=== PATIENT | male | born 1995 | race African-American/Black ===

== ENCOUNTER 2020-09-01 16:16 | Emergency (ER) | payer OTHER, SELFPAY ==
[2020-09-01 16:31] VITALS: BP 139/68; PULSE 83; RESP 16; TEMP 35.1; O2SAT 95; BMI 27.8
== END 2020-09-01 18:45 | disposition left against medical advice (07) ==
PROVIDERS: Emergency Provider Emergency Medicine
DX: R11.2 Nausea with vomiting, unspecified (principal); R19.7 Diarrhea, unspecified; Z86.16 Personal history of COVID-19
CPT/HCPCS: 99281; 99282

== ENCOUNTER 2022-05-03 08:20 | Emergency (ER) | payer OTHER, SELFPAY ==
--- NOTE | ~2022-05-03 | XR_ITS ---
EXAMINATION: XR CHEST CLINICAL INFORMATION: Cough. COMPARISON: None TECHNIQUE: 2 views of the chest were obtained. FINDINGS: No significant abnormality is noted involving the heart, lungs, mediastinum, bony thorax or soft tissues. XR/XR chest 2V IMPRESSION: Unremarkable chest examination.
[2022-05-03 08:23] VITALS: BP 138/70; PULSE 67; RESP 20; TEMP 36.6; O2SAT 98; BMI 29.5
[2022-05-03 08:30] VITALS: BP 135/89; PULSE 61; RESP 15; TEMP 36.7; O2SAT 98
--- NOTE | 2022-05-03 08:50 | ED_ITS ---
HPI - General Adult General Chief complaint: General Medical Stated complaint: Cough Time Seen by Provider: 05/03/22 08:30 Source: patient Mode of arrival: ambulatory Limitations: no limitations History of Present Illness HPI narrative: 26 year old male with no PMHx presents to the ED with cough, sneezing and headaches x 4-5 days ago. Endorses chest congestion, SOB at night when coughing, and brown/yellow mucus production x 2-3 days. Daughter was recently sick with the flu, and his currently has pneumonia. Endorses recent travel to [place]. Denies fever, chills, excess sweating, chest pain, leg swelling, nausea, vomiting, abdominal pain, or diarrhea. Onset (ago): day(s) Related Data Previous Rx's Medication Instructions Recorded fluticasone propionate 50 2 spray intranasal DAILY #16 grams 05/03/22 mcg/actuation nasal spray,suspension (Flonase Allergy Relief) prednisone 20 mg tablet 40 mg PO DAILY 5 days #10 tabs 05/03/22 Allergies Allergy/AdvReac Type Severity Reaction Status Date / Time No Known Allergies Allergy Unverified 05/03/22 08:22 [No Known Allergies*] Review of Systems Review of Systems: Constitutional: No Fever, No Chills ENT/Mouth: No Ear Pain, + Nasal Congestion, No Sinus Pain, No Hoarseness, + sore throat, No Rhinorrhea, No Swallowing Difficulty Cardiovascular: + Chest Pain when coughing, + SOB Respiratory: + Cough, + Sputum, No Wheezing Gastrointestinal: No Nausea, No Vomiting, No Diarrhea, No Constipation, No Abdominal pain Genitourinary: No Dysuria, No Urinary Frequency, No Hematuria, No Flank Pain Musculoskeletal: No joint pain, No Myalgias, No Joint Swelling Skin: No Skin Lesions, No rash Neuro: No Weakness, No Numbness, No Paresthesias Yes all other systems are reviewed and are negative Constitutional: Constitutional: Reports as per [facility] Past Medical History Attestation statement: The following information was validated with the patient. Social History Social History Advance Directives: No Advance Directives Information Provided: No Physical Exam ED Vital Signs: Vital Signs - 24 hr 05/03/22 08:23 05/03/22 08:30 Temperature 97.8 F 98.0 F Pulse Rate 67 61 Respiratory Rate 20 15 Blood Pressure 138/70 135/89 Pulse Oximetry 98 98 Oxygen Delivery Method Room Air Room Air BMI result Body Mass Index 29.5 Const General: cooperative, healthy appearing, no acute distress, well developed, alert and awake Orientation/consciousness: patient oriented x3 Limitations: no limitations HENMT Head: Yes normal to inspection and Yes atraumatic Ears: hearing grossly normal bilaterally General nose exam: Normal external nose present Face and sinus: Yes normal facial exam Throat: Yes posterior oropharynx normal, Yes tonsils normal and Yes uvula midline Eyes General: appearance normal, both eyes and all related structures EOM: EOMs intact bilaterally Neck Neck: Yes normal visual inspection and Yes no meningeal signs Resp Effort & Inspection: normal respiratory effort and no respiratory distress Auscultation: clear to auscultation bilaterally, no crackles, no rales, no rhonchi and no wheezes Cardio Rate: regular rate Heart sounds: S1 normal heart sound present and S2 normal heart sound present GI Inspection: Yes normal to inspection Palpation (GI): Soft to palpation, nontender, no guarding and not rigid General: Yes no CVA tenderness Back/Spine/Pelvis Back: no CVA tenderness Skin Rashes: no rashes Wounds: no wounds Neuro General: patient oriented x3, tone normal and no meningeal signs Gait exam (Neuro): Normal gait present Extrem General: Yes normal to inspection, Yes no pedal edema and Yes no calf tenderness Course Course Course Narrative: XR chest 2V IMPRESSION: Unremarkable chest examination. - COVID-19/influenza/ RSV negative Results discussed with patient including worrisome signs and symptoms and strict return precautions, and when to return to the emergency department. They verbalized understanding and feel safe for discharge at this time. Medical Decision Making Medical Decision Making MDM Narrative: 26 year old male with no PMHx presents to the ED with cough, sneezing and headaches x 4-5 days ago w/SOB at night when coughing, and brown/yellow mucus production x 2-3 days. on exam vital signs stable, NAD, nontoxic appearing, lungs CTA, exam otherwise nonfocal. Concern for viral illness vs pneumonia vs bronchitis. Lower suspicion for ACS/ PE or CHF Plan: COVID-19/influenza/ RSV testing, CXR Please refer to course for remaining clinical decision making, interpretation of labs/imaging results, and discussions with consultants and/or family members. Differential Diagnosis Differential Diagnoses: The differential diagnosis associated with the presentation includes as above Lab Data MDM Lab Attestation statement: I reviewed the patient's lab results. Labs: Lab Results 05/03/22 Range/Units 09:09 Influenza Type A (PCR) NEGATIVE (Negative) Influenza Type B (PCR) NEGATIVE (Negative) RSV RNA Qual (PCR) NEGATIVE (Negative) SARS-CoV-2 RNA (RT-PCR) NEGATIVE (Negative) Radiology Impression Discussion of test interpretation with radiology: I have reviewed the radiologist's reading. Prescription Management I considered prescription management with: Antiviral and Antibiotic Discharge Plan Discharge Clinical Impression: Bronchitis Patient Disposition: Home, Self-Care Instructions: Acute Bronchitis (ED) Additional Instructions: your x-ray is unremarkable. you tested negative for COVID-19, flu, and RSV prednisone as a steroid please take as prescribed. In addition Flonase nasal decongestant. Please have close follow-up with her doctor. If symptoms persist or worsen return to the emergency department Prescriptions: New prednisone 20 mg tablet 40 mg PO DAILY 5 Days Qty: 10 0RF fluticasone propionate [Flonase Allergy Relief] 50 mcg/actuation spray,suspension 2 spray intranasal DAILY Qty: 16 0RF Rx Instructions: administer into each nostril Referrals: Physician,Unknown J [Primary Care Provider] - 1 week Stand Alone Forms: Work/School Release
[2022-05-03 09:55] LABS: Influenza A PCR NEGATIVE (Negative); Influenza B PCR NEGATIVE (Negative); Resp Syncy Virus RNA Qual PCR NEGATIVE (Negative); SARS COV2 PCR INHOUSE NEGATIVE (Negative)
== END 2022-05-03 11:37 | disposition home or self-care (01) ==
PROVIDERS: Physician Assistant; Emergency Provider Emergency Medicine
DX: J40 Bronchitis, not specified as acute or chronic (principal); Z20.822 Contact with and (suspected) exposure to COVID-19; Z20.828 Contact with and (suspected) exposure to other viral communicable diseases
CPT/HCPCS: 0241U; 71046; 99283

== ENCOUNTER 2022-10-03 20:21 | Emergency (ER) | payer MEDICAID, SELFPAY ==
--- NOTE | ~2022-10-03 | XR_ITS ---
Indication: Fall, pain EXAMINATION: Right ankle, right foot. 2 views of the right ankle demonstrate a small bony density emanating off the dorsal aspect of the distal talus. Avulsion here would need to be considered. Point palpation recommended. Otherwise no evidence for fracture or dislocation in the ankle. 3 views of the right foot does not demonstrate evidence for fracture or dislocation in the right foot proper XR/XR ankle RT min 3V IMPRESSION: Small bony density emanating off the dorsal aspect of the distal talus may represent a small acute avulsion injury. Point palpation recommended here. Otherwise no evidence for acute fracture or dislocation of the right foot, right ankle
--- NOTE | ~2022-10-03 | XR_ITS ---
Indication: Fall, pain EXAMINATION: Right ankle, right foot. 2 views of the right ankle demonstrate a small bony density emanating off the dorsal aspect of the distal talus. Avulsion here would need to be considered. Point palpation recommended. Otherwise no evidence for fracture or dislocation in the ankle. 3 views of the right foot does not demonstrate evidence for fracture or dislocation in the right foot proper XR/XR foot RT min 3V IMPRESSION: Small bony density emanating off the dorsal aspect of the distal talus may represent a small acute avulsion injury. Point palpation recommended here. Otherwise no evidence for acute fracture or dislocation of the right foot, right ankle
[2022-10-03 20:40] VITALS: BP 138/81; PULSE 60; RESP 16; TEMP 36.6; O2SAT 99; BMI 29.4
--- NOTE | 2022-10-03 20:40 | ED.LOWEXIN ---
HPI - Extremity Injury (Lower) General Chief Complaint: Fall Stated Complaint: Fall down stairs/Right leg pain Time Seen by Provider: 10/04/22 00:52 Related Data Previous Rx's Medication Instructions Recorded fluticasone propionate 50 2 spray intranasal DAILY #16 grams 05/03/22 mcg/actuation nasal spray,suspension (Flonase Allergy Relief) ibuprofen 400 mg tablet 400 mg PO Q6H PRN pain #20 tabs 10/04/22 Allergies Allergy/AdvReac Type Severity Reaction Status Date / Time No Known Allergies Allergy Unverified 10/04/22 13:54 [No Known Allergies*] [facility] Social History Social History Alcohol intake: never Current occupational status: employed 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 Patient is a 26-year-old male presents emergency department for evaluation of traumatic right ankle/foot pain. Was walking down the stairs, tripped falling down approximately 4 stairs. Has pain localized to the right lateral ankle/proximal foot. Reports severe increase in pain with weight-bearing. Plan: XR right ankle/foot Discharge Plan Discharge Clinical Impression: Fracture of foot Patient Disposition: Home, Self-Care Instructions: Crutch Instructions (ED), Foot Fracture in Adults (ED) Prescriptions: New ibuprofen 400 mg tablet 400 mg PO Q6H PRN (Reason: pain) Qty: 20 0RF No Action fluticasone propionate [Flonase Allergy Relief] 50 mcg/actuation spray,suspension 2 spray intranasal DAILY Qty: 16 0RF Rx Instructions: administer into each nostril Referrals: Feliz Esquivel MD [Physician] - Stand Alone Forms: Work/School Release Interventions: ED Discharge Assessment Last Done: 10/04/22 01:34 Discharge Date/Time: 10/04/22 01:52
--- NOTE | 2022-10-04 01:01 | ED.FALL ---
HPI - Fall General Chief Complaint: Fall Stated Complaint: Fall down stairs/Right leg pain Time Seen by Provider: 10/04/22 00:52 History of Present Illness HPI Narrative: Patient is a 26-year-old male status post twisting injury to the right ankle. Complaining of pain localized over the foot. There is no any head injury. No nausea no vomiting. Patient from home. Related Data Previous Rx's Medication Instructions Recorded fluticasone propionate 50 2 spray intranasal DAILY #16 grams 05/03/22 mcg/actuation nasal spray,suspension (Flonase Allergy Relief) prednisone 20 mg tablet 40 mg PO DAILY 5 days #10 tabs 05/03/22 ibuprofen 400 mg tablet 400 mg PO Q6H PRN pain #20 tabs 10/04/22 Allergies Allergy/AdvReac Type Severity Reaction Status Date / Time No Known Allergies Allergy Unverified 05/03/22 08:22 [No Known Allergies*] Review of Systems Review of Systems: Positive pain to the right foot PMFSH Social History Social History Alcohol intake: never Physical Exam Vital Signs: Vital Signs: Last Vital Signs Temp 98 F 10/03/22 20:40 Pulse 60 10/03/22 20:40 Resp 16 10/03/22 20:40 BP 138/81 10/03/22 20:40 Pulse Ox 99 10/03/22 20:40 O2 Del Method Room Air 10/03/22 20:40 BMI result Body Mass Index 29.4 Appearance: Alert. Oriented X3. No acute distress. Eyes: Pupils equal, round and reactive to light. ENT: Pharynx normal. Neck: Normal inspection. Neck supple. No lymph nodes noted. No crepitus CVS: Normal heart rate and rhythm. Pulses normal. Normal S1 and S2 Respiratory: No respiratory distress. Breath sounds normal. No Wheezing. No rales Abdomen: Soft and nontender. No rigidity. No distention. good BS x4 Skin: Skin warm and dry. Normal skin color. Normal skin turgor. Extremities: positive swelling over the lateral aspect of the right proximal foot. Distal pulses at both dorsalis pedis and posterior tibialis intact. Positive pain on palpation at the base of the 5th metatarsal. Skin intact. Neuro: Oriented X 3. No motor deficit. No sensory deficit. Moving all extermities. No slurred speech Procedures Orthopedic Splinting/Casting right leg: Side: right Lower Extremity Injury Location: lower leg Lower Extremity Immobilizer: posterior splint Other Orthopedic Equipment: crutches Medical Decision Making Medical Decision Making MDM Narrative: x-ray of the foot done. It showed a question talus avulsion fracture. Will place patient in a posterior splint. Also start patient on Motrin for pain. Crutches for comfort. Close follow-up with orthopedics on an outpatient basis. In stable condition Independent Interpretation I performed an independent interpretation of an: Plain X-Ray Interpretation: No gross fracture identified Radiology Impression Discussion of test interpretation with radiology: I have reviewed the radiologist's reading. Radiologist Impression: question of [place] fracture noted Discharge Plan Discharge Clinical Impression: Fracture of foot Patient Disposition: Home, Self-Care Instructions: Crutch Instructions (ED), Foot Fracture in Adults (ED) Prescriptions: New ibuprofen 400 mg tablet 400 mg PO Q6H PRN (Reason: pain) Qty: 20 0RF No Action prednisone 20 mg tablet 40 mg PO DAILY 5 Days Qty: 10 0RF fluticasone propionate [Flonase Allergy Relief] 50 mcg/actuation spray,suspension 2 spray intranasal DAILY Qty: 16 0RF Rx Instructions: administer into each nostril Referrals: Feliz Esquivel MD [Physician] -
[2022-10-04 01:10] VITALS: BP 145/88; PULSE 97; RESP 18; TEMP 36.9; O2SAT 99
[2022-10-04 01:13] VITALS: BP 145/88; PULSE 97; RESP 18; TEMP 37.1
--- NOTE | 2022-10-04 01:33 | PC.NURSE ---
patient in the process of being discharged patient received a splint patient have no complaints at this time patient will continue to be given all paperwork
--- NOTE | 2022-10-04 01:36 | MHC.EDTECH ---
This tech applied a posterior short leg splint to pts right leg. Placement checked by . RN aware, Awaiting Discharge
== END 2022-10-04 01:52 | disposition home or self-care (01) ==
PROVIDERS: Emergency Provider Emergency Medicine Emergency Medical Services
DX: S92.811A Other fracture of right foot, initial encounter for closed fracture (principal); W10.8XXA Fall (on) (from) other stairs and steps, initial encounter; Y93.89 Activity, other specified; Y92.018 Other place in single-family (private) house as the place of occurrence of the external cause; Y99.9 Unspecified external cause status
CPT/HCPCS: 29515; 73610; 73630; 99202; 99283; 99284

== ENCOUNTER 2022-11-04 09:48 | Outpatient (REF) | payer MEDICAID, SELFPAY ==
--- NOTE | ~2022-11-04 | XR_ITS ---
EXAMINATION: XR FOOT, RIGHT CLINICAL INFORMATION: Right foot involving fracture chip fracture right talus COMPARISON: 10/03/2022 right foot and ankle TECHNIQUE: AP, lateral, and oblique views of the right foot. FINDINGS: Redemonstration of small bony density along the dorsal anterior aspect of the talus, concerning for an avulsion fracture. Correlation with the clinical exam recommended for confirmation. The joint spaces are maintained. The bone mineralization is normal. XR/XR foot RT min 3V IMPRESSION: Redemonstration of small bony density along the dorsal anterior aspect of the talus, concerning for an avulsion fracture. Correlation with the clinical exam recommended for confirmation. Additional imaging with CT scan or MRI should be considered for better visualization as these modalities are much more sensitive for detection of fracture or other underlying pathology.
== END 2022-11-04 09:49 | disposition home or self-care (01) ==
LOC: HO.HOSX 09:48
PROVIDERS: Visit Provider Orthopaedic Surgery
DX: S92.151D Displaced avulsion fracture (chip fracture) of right talus, subsequent encounter for fracture with routine healing (principal); W10.9XXD Fall (on) (from) unspecified stairs and steps, subsequent encounter
CPT/HCPCS: 73630; 99212

== ENCOUNTER 2022-11-04 10:04 | Outpatient (AMB) | payer MEDICAID, SELFPAY ==
--- NOTE | 2022-11-04 10:22 | MHC.OFFVIS ---
Intake Intake Visit Reasons: OV- Right foot fx Intake Note: Rupert is a 26 year old male who presents today for a follow up of his right foot. While going down the stairs on 10/03/22 he slipped and sustained a right talus avulsion fx. Patient has been wearing boot, and reports that he is doing well he has continued pain and swelling. Allergies No Known Allergies [No Known Allergies*] Allergy (Unverified 10/04/22 13:54) HPI OV- Right foot fx HPI Details Rupert is a 26 year old man here for a follow-up of his right talus avulsion fracture, S/P fall, DOI: 10/03/22. He says he is doing well overall. He continues to have subjective pain and swelling in his foot but says this has improved since he was last seen. He has been wearing a walking boot as instructed and has been working on gentle ROM when out of the boot. He has not done any PT. 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 Assessment & Plan Assessment & Plan (1) Avulsion fracture of right talus: Code(s): S92.151A - Displaced avulsion fracture (chip fracture) of right talus, initial encounter for closed fracture Plan: This is a 26 year old man with a right tailus avulsion fracture, S/P fall, DOI: 10/03/22. His pain has improved and has been wearing a walking boot. I recommend PT, he discontinue his crutches, and WBAT in his walking boot for the next 2 weeks. After 2 weeks he will discontinue his walking boot. I ordered PT, he will follow up in 1 month. He was given a note to remain out of work until his next visit. Plan Scribed for Feliz Esquivel MD by Alex Silva, medical assistant cardiology, on 11/04/22 at 10:50 AM, EST. Orders: Orders XR foot RT min 3V 11/04/22 S92.151A - Displaced avulsion fracture (chip fracture) of right talus, initial encounter for closed fracture PT Evaluation and Treatment 11/04/22 S92.151A - Displaced avulsion fracture (chip fracture) of right talus, initial encounter for closed fracture Coding Level of Care Code Est Pt Level 3 (28594) Diagnoses Avulsion fracture of right talus S92.151A
== END 2022-11-04 11:05 | disposition home or self-care (01) ==
PROVIDERS: PCP Physician Assistant; Visit Provider Orthopaedic Surgery
DX: S92.151A Displaced avulsion fracture (chip fracture) of right talus, initial encounter for closed fracture (principal)
CPT/HCPCS: 99213

== ENCOUNTER 2022-12-09 10:43 | Outpatient (AMB) | payer MEDICAID, SELFPAY ==
--- NOTE | 2022-12-09 10:47 | MHC.OFFVIS ---
Intake Vital Signs 12/09/22 10:48 Height 5 ft 11 in Weight 211 lb BMI 29.4 Intake Visit Reasons: OV- Right foot fx Intake Note: Rupert is a 26 year old male who presents today for a follow up of his right foot. Patient reports sharri he is doing well, still having some pain daily. He is still wearing the boot. He started PT recently which is going. Allergies No Known Allergies [No Known Allergies*] Allergy (Unverified 10/04/22 13:54) HPI OV- Right foot fx HPI Details Rupert is a 26 year old man here for a follow-up of his right talus avulsion fracture, S/P fall, DOI: 10/03/22. He says he is doing well overall. He continues to have mild pain in his foot but this is tolerable. He has been wearing a walking boot as instructed and has been working on gentle ROM when out of the boot. He recently started with PT, which is going well.? ? 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 Review of Systems Const All systems reviewed & are unremarkable except as noted in HPI and below Physical Exam Vital Signs: BMI result Body Mass Index 29.4 Const General: no acute distress, alert and awake Orientation/consciousness: patient oriented x3 HEENT Head: Yes normocephalic and Yes atraumatic Eyes EOM: EOMs intact bilaterally Resp Effort & Inspection: normal respiratory effort and able to speak in complete sentences Cardio Jugular venous distension: no JVD Skin General skin exam: turgor normal Rashes: no rashes Neuro General: patient oriented x3 Extrem Other: Right Foot: No soft tissue swelling No appreciable tenderness over dorsum of foot walking with a boot Mild antalgia with gait Psych Appearance: grossly normal Affect: normal affect Attitude: cooperative Assessment & Plan Assessment & Plan (1) Avulsion fracture of right talus: Code(s): S92.151A - Displaced avulsion fracture (chip fracture) of right talus, initial encounter for closed fracture Plan: This is a 26 year old man with a right talus avulsion fracture, S/P fall, DOI: 10/03/22. His pain has improved and has been wearing a walking boot. I recommend he continue with PT and spend the next week weaning off his walking boot and transitioning to street shoes. He should be mindful to not push through pain. He will continue current work restrictions and follow up in 1 month, with the goal of returning to full duty. Plan Scribed for Feliz Esquivel MD by Alex Silva, medical office supervisor, on 12/09/22 at 10:55 AM, EST. Coding Level of Care Code Est Pt Level 3 (18577) Diagnoses Avulsion fracture of right talus S92.151A
[2022-12-09 10:48] VITALS: BMI 29.4
== END 2022-12-09 11:01 | disposition home or self-care (01) ==
PROVIDERS: PCP Physician Assistant; Visit Provider Orthopaedic Surgery
DX: S92.151A Displaced avulsion fracture (chip fracture) of right talus, initial encounter for closed fracture (principal)
CPT/HCPCS: 99213

== ENCOUNTER → 2022-12-09 10:43 | Outpatient (BNVA) | payer MEDICAID, SELFPAY | PROVIDERS: PCP Physician Assistant; Visit Provider Orthopaedic Surgery | DX: S92.151D Displaced avulsion fracture (chip fracture) of right talus, subsequent encounter for fracture with routine healing (principal) | CPT/HCPCS: 99212 ==

== ENCOUNTER 2023-01-10 10:18 | Outpatient (AMB) | payer MEDICAID, SELFPAY ==
[2023-01-10 10:20] VITALS: BMI 29.4
--- NOTE | 2023-01-10 10:20 | A.OFFVIS_ITS ---
Intake Vital Signs 01/10/23 10:20 Height 5 ft 11 in Weight 211 lb BMI 29.4 Intake Visit Reasons: OV-Right foot FX- Follow up Intake Note: Rupert is a 26 year old male with a right talus avulsion fracture, S/P fall, DOI: 10/03/22. His pain has improved, at his last visit he was to start weaning out of the boot and was anticipating a RTW FTRD after todays visit. Allergies No Known Allergies [No Known Allergies*] Allergy (Unverified 10/04/22 13:54) HPI OV-Right foot FX- Follow up HPI Details Rupert is a 27 year old man here for a follow-up of his right talus avulsion fracture, S/P fall, DOI: 10/03/22. He would like to discuss work restrictions. He says he is doing well overall. He continues to have mild pain in his foot but this is tolerable. He has discontinued his walking boot since his last appointment. He says his primary complaint of pain is with prolonged standing. 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 Review of Systems Const All systems reviewed & are unremarkable except as noted in HPI and below Physical Exam Vital Signs: BMI result Body Mass Index 29.4 Const General: no acute distress, alert and awake Orientation/consciousness: patient oriented x3 HEENT Head: Yes normocephalic and Yes atraumatic Eyes EOM: EOMs intact bilaterally Resp Effort & Inspection: normal respiratory effort and able to speak in complete sentences Cardio Jugular venous distension: no JVD Skin General skin exam: turgor normal Rashes: no rashes Neuro General: patient oriented x3 Extrem Other: Right Foot: No swelling No TTP dorsum of right foot Still with mild pain with dorsiflexion of great toe Psych Appearance: grossly normal Affect: normal affect Attitude: cooperative Assessment & Plan Assessment & Plan (1) Avulsion fracture of right talus: Code(s): S92.151A - Displaced avulsion fracture (chip fracture) of right talus, initial encounter for closed fracture Plan: This is a 27 year old man with a right talus avulsion fracture, S/P fall, DOI: 10/03/22. His pain has improved overall, though he continues to have pain with prolonged standing. He has discontinued his walking boot. I recommend he continue with PT for stretching and strengthening and remain active as tole rated. He should be mindful to not push through pain. He was given a note for work to remain out of work for another 4 weeks. He will follow up in 4 weeks with a goal of a return to unrestricted work. Plan Scribed for Feliz Esquivel MD by Alex Silva, emergency medical technician, on 01/10/23 at 10:40 AM, EST. Coding Level of Care Code Est Pt Level 3 (45663) Diagnoses Avulsion fracture of right talus S92.151A
== END 2023-01-10 10:46 | disposition home or self-care (01) ==
PROVIDERS: PCP Physician Assistant; Visit Provider Orthopaedic Surgery
DX: S92.151A Displaced avulsion fracture (chip fracture) of right talus, initial encounter for closed fracture (principal)
CPT/HCPCS: 99213

== ENCOUNTER → 2023-01-10 10:18 | Outpatient (BNVA) | payer MEDICAID, SELFPAY | PROVIDERS: PCP Physician Assistant; Visit Provider Orthopaedic Surgery | DX: S92.151D Displaced avulsion fracture (chip fracture) of right talus, subsequent encounter for fracture with routine healing (principal); X58.XXXD Exposure to other specified factors, subsequent encounter | CPT/HCPCS: 99212 ==

== ENCOUNTER 2023-02-02 10:00 | Outpatient (RCR) | payer MEDICAID, SELFPAY ==
--- NOTE | 2022-12-08 13:18 | MHC.PT.EP ---
[facility] [place] Office [place] Office [place] Office [address] Haydee Ames [address] [phone] F: [phone] F: [phone] F: [phone] F: [phone] Physical Therapy Plan of Care Date of Evaluation: Date of Surgery: Diagnosis: Closed, displaced avulsion fracture (chip fracture) of right talus (DOI: 10/03/22) Assessment: Patient is a pleasant, 27 y.o. male who is referred to PT by Dr. Feliz Esquivel MD, with Dx of Closed, displaced avulsion fracture (chip fracture) of right talus. Patient impairments include R ankle pain, swelling, limited ROM, weakness, antalgic gait and inability to work. Patient current functional limitations are difficulty driving, prolonged standing, stair use, ambulating, bend/squat. Patient will benefit from skilled PT to address aforementioned impairments and functional limitations to meet established goals. Frequency and Duration: The patient will be seen 2x/week for 4 weeks Short Term Goals: 2 weeks Patient demonstrates reduced swelling circumferential R ankle malleoli 22 cm. Patient is able to wean off CAM boot and utilize regular shoe for ambulation on level surfaces. Long-Term Goals: 4 weeks Patient demonstrates increased R ankle DF 0 degrees to be able to normalize heel to toe gait pattern to return to work. Patient presents with incrased R ankle DF/PF 5/5 to be able to ascend/descend 12 steps reciprocally. Treatment Plan: Modalities to reduce pain, spasms and effusion. Manual therapy to restore motion and function. Therapeutic exercise to improve strength and flexibility. Neuromuscular re-education for posture and balance. Therapeutic activities to return to functional activities of daily living. Electronically signed by: Roxann Sheldon, PT, DPT Please sign and return to therapist. Thank you for your referral.
--- NOTE | 2023-03-15 16:24 | MHC.PT.DC ---
[facility] [place] [facility] [place] [facility] [place] Office [address] Haydee Ames 140 [facility] [phone] F: [phone] F: [phone] F: [phone] F: [phone] Physical Therapy Discharge Report Diagnosis: Closed, displaced avulsion fracture (chip fracture) of right talus (DOI: 10/03/22) Date of Surgery: Date of Evaluation: 12/08/22 Date of Discharge: 03/15/23 Treatments to Date: 13 Cancellations to Date: No Shows to Date: Discharge Status: Achieved Goals Improved Function Independent with HEP Patient Elected to Stop Physician Discontinued Tx Discharge Summary: Rupert was seen by Dr. Esquivel on 02/10/23 and was cleared to RTW, and therefore he decided to discontinue therapy at that time. He is discharged from skilled PT. Electronically signed by: Roxann Sheldon, PT, DPT Please sign and return to therapist. Thank you for your referral.
== END 2023-03-15 16:24 | disposition home or self-care (01) ==
LOC: HO.PT 10:00
PROVIDERS: PCP Physician Assistant; Visit Provider Orthopaedic Surgery
DX: S92.151D Displaced avulsion fracture (chip fracture) of right talus, subsequent encounter for fracture with routine healing (principal)
CPT/HCPCS: 97110; 97116; 97140; 97161; 97530

== ENCOUNTER 2023-02-10 10:02 | Outpatient (AMB) | payer MEDICAID, SELFPAY ==
--- NOTE | 2023-02-10 10:13 | A.OFFVIS_ITS ---
Intake Intake Visit Reasons: OV-Right foot FX Intake Note: Rupert is a 26 year old male with a right talus avulsion fracture, S/P fall, DOI: 10/03/22. His pain has improved, no longer wears walking abraham and was anticipating a RTW FTRD after todays visit. Patient reports that he is doing we ll, he went to work to see if he can do light duty of which they could not accommodate. He is working with physical therapy, they recommend more therapy as he needs to work on ROM. He has pain with prolonged standing. Allergies No Known Allergies [No Known Allergies*] Allergy (Unverified 10/04/22 13:54) HPI OV-Right foot FX HPI Details Rupert is a 27 year old man here for a follow-up of his right talus avulsion fracture, S/P fall, DOI: 10/03/22. He would like to discuss work restrictions. He says he is doing well overall. He continues to have mild pain in his foot primarily with prolonged standing activities. He tried to return to work on light duty, but they could not accommodate him with restrictions. He has been attending PT, which he says is going well, and wants to know if he needs to continue. 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 Review of Systems Const All systems reviewed & are unremarkable except as noted in HPI and below Physical Exam Const General: no acute distress, alert and awake Orientation/consciousness: patient oriented x3 HEENT Head: Yes normocephalic and Yes atraumatic Eyes EOM: EOMs intact bilaterally Resp Effort & Inspection: normal respiratory effort and able to speak in complete sentences Cardio Jugular venous distension: no JVD Skin General skin exam: turgor normal Rashes: no rashes Neuro General: patient oriented x3 Extrem Other: Right Foot: No swelling No TTP dorsum of right foot NO pain with resisted DF Normal exam Psych Appearance: grossly normal Affect: normal affect Attitude: cooperative Assessment & Plan Assessment & Plan (1) Avulsion fracture of right talus: Code(s): S92.151A - Displaced avulsion fracture (chip fracture) of right talus, initial encounter for closed fracture Plan: This is a 27 year old man with a right talus avulsion fracture, S/P fall, DOI: 10/03/22. His pain has improved. I recommend he remain active as tolerated and was given a note for work to return to fully duty, without restrictions. He can follow up prn. Plan Scribed for Feliz Esquivel MD by Alex Silva, medical dir, on 02/10/23 at 10:25 AM, EST. Coding Level of Care Code Est Pt Level 3 (09049) Diagnoses Avulsion fracture of right talus S92.151A
== END 2023-02-10 10:29 | disposition home or self-care (01) ==
PROVIDERS: PCP Physician Assistant; Visit Provider Orthopaedic Surgery
DX: S92.151A Displaced avulsion fracture (chip fracture) of right talus, initial encounter for closed fracture (principal)
CPT/HCPCS: 99213

== ENCOUNTER → 2023-02-10 10:02 | Outpatient (BNVA) | payer MEDICAID, SELFPAY | PROVIDERS: PCP Physician Assistant; Visit Provider Orthopaedic Surgery | DX: S92.151D Displaced avulsion fracture (chip fracture) of right talus, subsequent encounter for fracture with routine healing (principal) | CPT/HCPCS: 99212 ==

== ENCOUNTER 2024-05-15 10:19 | Outpatient (REF) | payer OTHER, SELFPAY ==
--- NOTE | ~2024-05-15 | XR_ITS ---
EXAMINATION: XR ANKLE, LEFT XR FOOT, LEFT CLINICAL INFORMATION: W19.XXXA - Unspecified fall, initial encounter COMPARISON: None available. TECHNIQUE: AP, lateral, and mortise views of the left ankle. 2 views left foot. FINDINGS: No fracture or dislocation. No malalignment. Ankle mortise is intact. The talar dome is normal. The subtalar joints and calcaneus appear normal. Normal plantar arch. Forefoot and midfoot appear normal. No additional soft tissue abnormality. XR/XR ankle LT 2V IMPRESSION: Normal left ankle and foot. Electronically signed by: Devyn Connelly MD 05/15/2024 11:58 AM [facility]
--- NOTE | ~2024-05-15 | XR_ITS ---
EXAMINATION: XR ANKLE, LEFT XR FOOT, LEFT CLINICAL INFORMATION: W19.XXXA - Unspecified fall, initial encounter COMPARISON: None available. TECHNIQUE: AP, lateral, and mortise views of the left ankle. 2 views left foot. FINDINGS: No fracture or dislocation. No malalignment. Ankle mortise is intact. The talar dome is normal. The subtalar joints and calcaneus appear normal. Normal plantar arch. Forefoot and midfoot appear normal. No additional soft tissue abnormality. XR/XR foot LT min 3V IMPRESSION: Normal left ankle and foot. Electronically signed by: Devyn Connelly MD 05/15/2024 11:58 AM [facility] [place]
--- OUTSIDE RECORDS SUMMARY | 2024-05-15 12:30 | XMS_ITS | Encounter Summary ---
Author Organization [facility] Address [address] [place] [address] Care Team Providers Care Car Parker Name Role Phone Bassem Oneal Primary Care Provider [phone] Reason for Visit * Reason Comments Dental Hygiene/ Preventive RECALL Encounter Details Date Type Department Care Team ([facility] st Contact Info) Description 04/23/2024 1:00 PM EST Office Visit [facility] [address] [place] [phone] Evita Bourgeois [address] [place] [address] Encounter for dental examination (Primary Dx); Caries [...] 28 year old male, presents alone for Pickup Services. Pie Filler: No No chief complaint on file. Objective [...] Harshal Espino DDS Prophy completed with ultrasonic recycling technician [facility] & Nutrition counseling provided, discussed: Gingivitis Post-Op Information Given: verbal Referral: No orders of the following type(s) were placed in this encounter: Referral. Rx: No orders of the defined types were placed in this encounter. Behavior: Excellent NV: Recall documented in this encounter Plan of Treatment Upcoming Encounters Date Type Department Care Team ([facility] st Contact Info) Description 10/22/2024 11:00 AM EDT Office Visit [facility] [address] [place] [phone] Evita Bourgeois [address] [place] [phone] Scheduled Orders Name Type Priority Associated Diagnoses [...] documented as of this encounter Care Teams Car Parker Relationship Specialty Start Date End Date Bassem Oneal PA [address] [place] [address] PCP - General Internal Medicine 05/28/16 documented as of this encounter
--- OUTSIDE RECORDS SUMMARY | 2024-05-15 12:30 | XMS_ITS | Encounter Summary ---
Author Organization [facility] Address [address] [place] [address] Care Team Providers Care Primary Care Provider Name Role Phone Bassem Oneal Primary Care Provider [phone] Encounter Details Date Type Department Care Team [...] Description 10/22/2024 11:00 AM EDT Office Visit [facility] [address] [place] [address] Evita Bourgeois [address] [place] [address] documented as of this encounter Visit Diagnoses Not on filedocumented in this encounter Additional Health Concerns Assessment Noted Time PHQ-9 Depression Total Score: 0 03/07/20 24 8:44 AM PST documented as of this encounter Care Teams Primary Care Provider Relationship Specialty Start Date End Date Bassem Oneal PA [address] [place] [address] PCP - General Internal Medicine 05/28/16 documented as of this encounter
--- OUTSIDE RECORDS SUMMARY | 2024-05-15 12:32 | XMS_ITS | Clinical Summary ---
Author Organization [facility] [address] it[address] Address [address] [place] [address] Care Team Providers Care Adjunct Phlebotomy Instructor Name Role Phone Unavailable Primary Care Provider [...]
== END 2024-05-15 10:20 | disposition home or self-care (01) ==
LOC: HO.HMGCX 10:19
PROVIDERS: PCP Physician Assistant; Visit Provider Physician Assistant
DX: M25.572 Pain in left ankle and joints of left foot (principal); M79.672 Pain in left foot
CPT/HCPCS: 73600; 73630

== ENCOUNTER 2024-05-15 10:19 | Outpatient (AMB) | payer OTHER, SELFPAY ==
--- OUTSIDE RECORDS SUMMARY | 2024-05-15 11:04 | XMS_ITS | Data Portability ---
Author Organization [facility] [employer], [address] Address [address] [place] [address] Assessment No assessment recorded. Plan of Treatment Reminders Order Date Submit Date Provider Last Modified By Organization Details Last Modified Time Details Appointments None recorded. Lab rapid flu (A+B) 2021 _[facility], [address] [place] [address], [id number], 19:20:30 urinalysis , dipstick 2021 _[facility], [address] [place] [address], [id number], 19:20:30 Referral None recorded. Procedures None recorded. Surgeries None recorded. Imaging None recorded. Medication Orders None recorded. Patient TargetsNo targets recorded. Patient Instructions Encounter Date Encounter Id Patient Instructions Last Modified By Organization Details Last Modified Time 04/09/2022 [id number] gastroenteritis: care instructions Not available 04/09/2022 19:20:30 diarrhea: care instructions Not available 04/09/2022 19:20:30 Increase fluids Get plenty of rest. Brat diet consists of: Bananas Rice Applesauce Inola. : Use this diet for 24- 48 hours and advance if symptoms are improving. Return to clinic if worsens, becomes more concerning or as needed. Go to Emergency Room if you feel you have a life threatening condition. Not available 04/09/2022 19:20:29 Reason for Referral None Reported. Results Created Date Observation Date Name Description Value Unit Range Abnormal Flag Note LastModifiedBy Organization Detail LastModifiedTime 04/09/20 22 04/09/2022 rapid flu (A+B) Unknown Analyte Normal = Negati ve Not Available 2099nikki shultz [address], [place], [address], 04/09/2022 18:52:36 04/09/20 22 04/09/2022 rapid flu (A+B) Unknown Analyte Normal = Negati ve Not Available 2099nikki shultz [address], [place], [address], 04/09/2022 18:52:36 04/09/20 22 04/09/2022 rapid flu (A+B) Unknown Analyte negati ve Not Available 2099nikki shultz [address], [place], [address], 04/09/2022 18:52:36 04/09/20 22 04/09/2022 rapid flu (A+B) Unknown Analyte negati ve Not Available 2099nikki shultz [address], [place], [address], 04/09/2022 18:52:36 04/09/20 22 04/09/2022 urina lysis , dipst ick Unknown Analyte Normal = light yellow Not Available nikki shultz [address], [place], [address], 04/09/2022 19:01:23 04/09/20 22 04/09/2022 urina lysis , dipst ick Unknown Analyte Yellow Not Available [address], [place], [address], 04/09/2022 19:01:23 04/09/20 22 04/09/2022 urina lysis , dipst ick Unknown Analyte Normal = clear Not Available nikki shultz [address] [place], [address], 04/09/2022 19:01:23 04/09/20 22 04/09/2022 urina lysis , dipst ick Unknown Analyte Clear Not Available jace [address], [place], [address], 04/09/2022 19:01:23 04/09/20 22 04/09/2022 urina lysis , dipst ick Unknown Analyte Normal = negati ve Not Available nikki shultz [address], [place], [address], 04/09/2022 19:01:23 04/09/20 22 04/09/2022 urina lysis , dipst ick Unknown Analyte Negati ve Not Available nikki shultz [address], [place], [address], 04/09/2022 19:01:23 04/09/20 22 04/09/2022 urina lysis , dipst ick Unknown Analyte Normal = Negati ve Not Available nikki shultz [address], [place], [address], 04/09/2022 19:01:23 04/09/20 22 04/09/2022 urina lysis , dipst ick Unknown Analyte Negati ve Not Available nikki shultz [address], [place], [address], 04/09/2022 19:01:23 04/09/20 22 04/09/2022 urina lysis , dipst ick Unknown Analyte Normal = Negati ve Not Available nikki shultz [address], [place], [address], 04/09/2022 19:01:23 04/09/20 22 04/09/2022 urina lysis , dipst ick Unknown Analyte Negati ve Not Available nikki shultz [address], [place], [address], 04/09/2022 19:01:23 04/09/20 22 04/09/2022 urina lysis , dipst ick Unknown Analyte Normal = 1.010, 1.015, 1.020 Not Available nikki shultz [address], [place], [address], 04/09/2022 19:01:23 04/09/20 22 04/09/2022 urina lysis , dipst ick Unknown Analyte 1.015 Not Available [address], [place], [address], 04/09/2022 19:01:23 04/09/20 22 04/09/2022 urina lysis , dipst ick Unknown Analyte Normal = Negati ve Not Available [facility] [address], [place], [address], 04/09/2022 19:01:23 04/09/20 22 04/09/2022 urina lysis , dipst ick Unknown Analyte Trace- intact Not Available [facility] [address], [place], [address], 04/09/2022 19:01:23 04/09/20 22 04/09/2022 urina lysis , dipst ick Unknown Analyte Normal = 6.5, 7.0, 7.5, 8.0 Not Available nikki shultz [address], [place], [address], 04/09/2022 19:01:23 04/09/20 22 04/09/2022 urina lysis , dipst ick Unknown Analyte 6.0 Not Available [address] [place] [address], [place], [address], 04/09/2022 19:01:23 04/09/20 22 04/09/2022 urina lysis , dipst ick Unknown Analyte Normal = Negati ve Not Available 2099nikki shultz [address], [place], [address], 04/09/2022 19:01:23 04/09/20 22 04/09/2022 urina lysis , dipst ick Unknown Analyte Negati ve Not Available 2099nikki shultz [address], [place], [address], 04/09/2022 19:01:23 04/09/20 22 04/09/2022 urina lysis , dipst ick Unknown Analyte Normal = 0.2, 1.0 Not Available 2099nikki shultz [address], [place], [address], 04/09/2022 19:01:23 04/09/20 22 04/09/2022 urina lysis , dipst ick Unknown Analyte 0.2 E.U./d L Not Available nikki shultz [address], [place], [address], 04/09/2022 19:01:23 04/09/20 22 04/09/2022 urina lysis , dipst ick Unknown Analyte Normal = Negati ve Not Available 2099nikki shultz [address], [place], [address], 04/09/2022 19:01:23 04/09/20 22 04/09/2022 urina lysis , dipst ick Unknown Analyte Negati ve Not Available 2099nikki shultz [address], [place], [address], 04/09/2022 19:01:23 04/09/20 22 04/09/2022 urina lysis , dipst ick Unknown Analyte Normal = Negati ve Not Available 2099nikki shultz [address], [place], [address], 04/09/2022 19:01:23 04/09/2004/09/2022 urina lysis , dipst ick Unknown Analyte Negati ve Not Available [address] [place], [address], 04/09/2022 19:01:23 Result Notes None recorded. Problems No Known Problems Medical Equipment None Reported. Allergies No known drug allergies Medications Not known to be on any medication Vitals Date Recorded Body height Body mass index (BMI) Body weight Respiratory rate Oxygen saturation Oxygen saturation in Arterial blood by Pulse oximetry Heart rate Body temperature Systolic blood pressure Diastolic blood pressure Provider Name and Address Organization Details Last Updated DateTime 180.34 cm 30 kg/m2 68854.3 6 g 16 /min 97 % 97 % 76 /min 97.5 [degF] 134 mm[Hg] 74 mm[Hg] LEON BUTTERFIELD - [facility] 18:53:30 Social History Question Answer Notes LastModified by Cleankeysat ion Details LastModified Time Tobacco Smoking Status Never Smoker LEON martinez [place] - [facility] 04/09/2022 18:52:27 What Is Your Level Of Alcohol Consumption? Occasional Information not available 04/09/2022 Do You Use Any Illicit Or Recreational Drugs? No [email or web address] Information not available 04/09/2022 Have You Recently Traveled Abroad? No Information not available 04/09/2022 Do You Or Have You Ever Used Any Other Forms Of Tobacco Or Nicotine? No [email or web address] Information not available 04/09/2022 Sex: Unknown Functional Status None recorded. Mental Status None recorded. Family History Relationship Description Onset Age of this Age Resolved Age Notes LastModified by Organization Details LastModified Time Father No current problems or disability [email or web address] Not available 04/09 18:50:49 Mother No current problems or disability [email or web address] Not available 04/09 18:50:49 Medical History No medical history recorded. Past Encounters Encounter ID Performer Location Encounter Start Date Encounter Closed Date Diagnosis/Indication Diagnosis SNOMED-CT Code Diagnosis ICD10 Code Diagnosis Note [id number] [address] [place] [address] 07/03/2018 16:10:18 07/03/2018 16:46:23 [id number] [address] [place] [address] 09/03/2020 08:25:13 09/03/2020 09:44:48 [id number] [address] [place] [address] 07/03/2018 16:14:14 07/03/2018 16:46:18 [id number] [address] [facility] [place] [address] 10/09/2018 13:26:58 10/09/2018 14:16:27 [id number] [facility] [address] [place] [address] 04/09/2022 18:01:06 04/09/2022 19:22:28 Viral gastroenteritis 894942242 A08.4 Health Concerns Section Related Observation LastModified by Organization Detai ls LastModified Time None Recorded Concern Status LastModified by Organization Details LastModified Time None Recorded Advance Directives Directive None Recorded Payers Encounter Date Sequence Insurance Name Policy Number Policy Chua Covered Member ID Chua Member ID Guarantor Name 09/03/2020 1 [facility] (MEDICAID HMO) [id number] Rupert Robledo [id number] Rupert Robledo 04/09/2022 1 [facility] (MEDICAID HMO) [id number] Rupert Robledo [id number] Rupert Robledo Notes Date Note Type Note Provider Name and Address Organization Details Recorded Time 04/09/2022 text/html Abdominal PainReported bypatient.source of patient informationpatient ; Patient arrived at Urgent Care ambulatory Location:generaliz ed Severity:mild Duration:started: (5 days) Context:started 5 days ago with n/v that progressed into diarrhea. no n/v x 3 days but still having diarrhea. Modifying Factors:nothing gives relief Associated Symptoms:no fever; no chills; no vomiting Yocasta Pilar, PA [address], [place], [address], [place] - [facility] 04/09/2022 19:22:08
--- OUTSIDE RECORDS SUMMARY | 2024-05-15 11:04 | XMS_ITS | Clinical Summary ---
Author Organization [facility] ity Address [address] [place] [address] Care Team Providers Care Agent Licensing Clerk Name Role Phone Unavailable Primary Care Provider Unavailabl e Social History Tobacco Use Types Packs/Day Years Used Date Smoking Tobacco: Never Assessed Sex and Gender Information Value Date Recorded Sex Assigned at Not on file Gender Identity Not on file Sexual Orientation Not on file Plan of Treatment Health Maintenance Due Date Last Done Comments DTaP,Tdap,and Td Vaccines (1 - Tdap) 2012 Hepatitis B Vaccines (1 of 3 - 19+ 3-dose series) 2012 COVID-19 Vaccine (2023-2 5 season) 2023 Influenza Vaccine (#1) 2023 HIB Vaccines Aged Out No longer eligi ble based on patient's age to complete this topic HPV Vaccines Aged Out No longer eligi ble based on patient's age to complete this topic Hepatitis A Vaccines Aged Out No long er eligible based on patient's age to complete this topic IPV Vaccines Aged Out No longer eligi ble based on patient's age to complete this topic MMR Vaccines Aged Out No longer eligi ble based on patient's age to complete this topic Meningococcal ACWY Vaccine Aged Out N o longer eligible based on patient's age to complete this topic Pneumococcal Vaccine: Pediat rics (0 to 5 Years) and At-Risk Patients (6 to 64 Years) Aged Out No longer eligible b ased on patient's age to complete this topic RSV Immunization Patients Un deonna 20 months Aged Out No longer eligible b ased on patient's age to complete this topic Varicella Vaccines Aged Out No longer eligible based on patient's age to complete this topic
--- OUTSIDE RECORDS SUMMARY | 2024-05-15 11:04 | XMS_ITS | Encounter Summary ---
Author Organization [facility] Address [address] [place] [address] Care Team Providers Care Bag Sewer Name Role Phone Bassem Oneal Primary Care Provider [phone] Encounter Details Date Type Department Care Team (Latest Contact Info) Description 04/23/2024 Travel Social History Tobacco Use Types Packs/Day Years Used Date Smoking Tobacco: Never Smokeless Tobacco: Never Alcohol Use Standard Drinks/Week Comments Yes 0 (1 standard drink = 0.6 oz pur e alcohol) occ Social Connections Answer Date Recorded Connectedness 1 03/07/2024 Financial Resource Strain Answer Date R ecorded Financial Resource Strain 1 2023 Stress Answer Date Recorded Stress 1 03/07/2024 Physical Activity Answer Date Recorded Physical Activity 0 2018 Food Insecurity Answer Date Recorded Food 1 03/07/2024 Transportation Needs Answer Date Record ed Transportation 1 03/07/2024 Housing Stability Answer Date Recorded Housing 1 03/07/2024 Safety and Environment Answer Date Migel rded Safety 0 04/13/2022 Utilities Answer Date Recorded Utilities 1 03/07/2024 Employment Answer Date Recorded Stress 0 04/13/2022 Sex and Gender Information Value Date Recorded Sex Assigned at Male 12/22/2017 1:07 PM PDT Legal Sex Male 11:36 AM PDT Gender Identity Male Sexual Orientation Straight 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 No / Unsure 04/23/2024 1:09 PM EST documented as of this encounter Plan of Treatment Upcoming Encounters Date Type Department Care Team (Late st Contact Info) Description 10/22/2024 11:00 AM EDT Office Visit [facility] [address] [place] [address] Evita Bourgeois [address] [place] [address] documented as of this encounter Visit Diagnoses Not on filedocumented in this encounter Additional Health Concerns Assessment Noted Time PHQ-9 Depression Total Score: 0 03/07/20 24 8:44 AM PST documented as of this encounter Care Teams Bag Sewer Relationship Specialty Start Date End Date Bassem Oneal PA [address] [place] [address] PCP - General Internal Medicine 05/28/16 documented as of this encounter
--- OUTSIDE RECORDS SUMMARY | 2024-05-15 11:04 | XMS_ITS | Clinical Summary ---
Author Organization [facility] Address [address] [place] [address] Care Team Providers Care Director Of Creative Services Name Role Phone Bassem Oneal Primary Care Provider [phone] Source Comments PLEASE NOTE, if this patient is a minor, it may be UNLAWFUL to discuss sensitive information that is contained in these records (such as FAMILY PLANNING, MENTAL HEALTH or SUBSTANCE ABUSE) with the minor patient's parent or other person without the patient's specific authorization.[facility] Allergies No known active allergies Medications fluticasone (FLONASE) 50 mcg/actuation nasal spray SPRAY 2 SPRAYS INTO EACH NOSTRIL DAILY 3 Active predniSONE (DELTASONE) 20 mg tablet TAKE 2 TABLETS BY MOUTH EVERY DAY FOR 5 DAYS 3 Active fluoride, sodium, (DENTAGEL) 1.1 % gelIndications: Caries of enamel (incipient) Place in mouth once daily 56 g 5 Active fluoride, sodium, (DENTAGEL) 1.1 % gelIndications: Caries of dentin Place in mouth once daily 56 g 3 5 Active fluoride, sodium, (DENTAGEL) 1.1 % gelIndications: Caries of dentin Place in mouth once daily 56 g 3 3 04/23/19 25 Discontinu ed(Reorder (E-Cancel Not Sent)) Active Problems Problem Noted Date Diagnosed Date Abdominal cramping 04/13/2022 Blood in stool 04/13/2022 Decreased appetite 04/13/2022 Encounter for diagnostic col onoscopy due to change in bowel habits 04/13/2022 Epigastric discomfort 04/13/2022 History of weight loss 04/13/2022 Passage of loose stools 04/13/2022 Encounters Date Type Department Care Team Description 04/23/2024 1:00 PM EST Office Visit [facility] [address] [place] [phone] Evita Bourgeois Encounter for dental examination (Primary Dx); Caries of dentin; Caries of enamel (incipient) 04/23/2024 Travel 03/07/2024 8:40 AM EST Office Visit [facility] [address] [place] [address] Bassem Oneal PA Routine general medical examination at a health care facility (Primary Dx); History of weight loss; BMI 29.0-29.9,adult 03/07/2024 Travel from Last 3 Months Immunizations Name Administration Dates Next Due DTAP (DAPTACEL),5 PERTUSSIS ANTIGENS 03/25/1994, 02/23/1994,01/21/1994 Flu, Preservative Free 12/22/2017,05/28/2016,11/2015 HEP B, PED/ADOL 10/12/2011,06/05/2007,03/21/2007 HPV, QUADRIVALENT 10/30/2013,10/11/2012,10/12/19 12 Hep A, Ped/adol, 2 Dose 04/24/2009,03/06/2008 INFLUENZA, SEASONAL, INJECTABLE 03/06/2008 INFLUENZA, SEASONAL, INJECTA BLE, PRESERVATIVE FREE 03/29/2014 IPV 03/25/1994, 4,01/21/1994,11/30 MENINGOCOCCAL MCV4P (MENACTRA) 10/30/2013,2007 MENINGOCOCCAL VACCINE,CONJUG ATE (NON-INTERFACE) 03/06/2008 MMR (MMR II/Priorix) 03/21/2007,09/02/1994 PFIZER COVID VACCINE, PURPLE CAP, 12+ 09/16/2020 ,08/26/2020 PPD 10/12/2011 TDAP 10/12/2011 Td(adult),2 Lf tetanus toxoid,preservative free 06/05/2007 Varicella, Live Vaccine 06/05/2007,03/21/2007 Social History Tobacco Use Types Packs/Day Years Used Date Smoking Tobacco: Never Smokeless Tobacco: Never Tobacco Cessation:Counseling Given: Not Answered Alcohol Use Standard Drinks/Week Comments Yes 0 [...] No / Unsure 04/23/2024 1:09 PM EST Last Filed Vital Signs Vital Sign Reading Time Taken Comments Blood Pressure 120/75 04/23/2024 1:52 PM EST Pulse 66 04/23/2024 1:52 PM EST Temperature 37.2 ??C (98.9 ??F) 03/07/2024 8:43 AM ES T Respiratory Rate 16 03/07/2024 8:43 AM EST Oxygen Saturation 95% 03/07/2024 8:43 AM EST Inhaled Oxygen Concentration - - Weight 97 kg (213 lb 14.4 oz) 03/07/2024 8:43 AM EST Height 180.3 cm (5' 11 ) 03/07/2024 8:43 AM EST Body Mass Index 29.83 03/07/2024 8:43 AM EST Plan of Treatment Upcoming Encounters Date Type Department Care Team (Late st Contact Info) Description 10/22/2024 11:00 AM EDT Office Visit [facility] [address] [place] [phone] Evita Bourgeois [address] [place] [address] Health Maintenance Due Date Last Done Comments Dental FMX/Pano 1993 Imm-Pneumococcal (1 of 2 - PCV) 2012 Imm-DTaP/Tdap/Td (6 - Td or Tdap) 10/11/2021 10/12/2011, 06/05/2007, 03/25/1994, Additional history exists [id number] ( season) 2023 021, 08/26/2020 Imm-Influenza (#1) 2023 12/22/2017, 0 05/28/2016, 04/18/2015, Additional history exists Alcohol and Drug Screen 04/11/2024 03/07/20 24, 04/13/2022, 03/14/2020, Additional history exists Depression Annual Screen 04/11/2024 024, 06/20/2018, 05/28/2016, Additional history exists Annual Preventive Care Visit 03/07/2025, 04/13/2022, 03/14/2020, Additional history exists Diabetes Screening 03/07/2025 03/07/2024, 0 04/13/2022, 05/28/2016, Additional history exists Tobacco Screening 03/07/2025 03/07/2024 Hypertension Screening (#1) 04/23/2025 Dental BW 04/25/2025 04/23/2024, 07/0 09/2022, 04/16/2022 Dental Examination 04/25/2025 04/23/2024, 0 10/14/2022, 04/16/2022 Dental Perio Charting 04/25/2025 04/23/2024 , 10/14/2022, 04/16/2022 Dental Prophy 04/25/2025 04/23/2024, 07/0 09/2022, 04/16/2022 Imm-Hepatitis B Completed 10/12/2011, 05/13, 03/21/2007 HIV Screening Completed 04/13/2022 Hepatitis C Screening Completed 04/13/2022 Procedures Procedure Name Priority Date/Time Associated Diagnosis Comments PERIODIC ORAL EVALUATION ESTABLISHED PATIENT Routine 04/23/2024 1:00 PM EST Encounter for dental examination DENTAL CASE MANAGEMENT - MOTIVATIONAL INTV Routine 04/23/2024 1:00 PM EST Encounter for dental examination PROPHYLAXIS - ADULT Routine 04/23/2024 1 :00 PM EST Encounter for dental examination COMP PERIODONTAL EVALUATION - NEW/EST PATIENT Routine 04/23/2024 1:00 PM EST Encounter for dental examination BITEWINGS - FOUR RADIOGRAPHIC IMAGES Routine 04/23/2024 1:00 PM EST Encounter for dental examination CARIES RISK ASSESSMENT & DOC FINDING HIGH RISK Routine 04/23/2024 1:00 PM EST Encounter for dental examination NUTRITIONAL COUNSELING CONTROL OF DENTAL DISEASE Routine 04/23/2024 1:00 PM EST Encounter for dental examination ORAL HYGIENE INSTRUCTIONS Routine 04/23/2024 1:00 PM EST Encounter for dental examination ORAL CANCER SCREENING Routine 04/23/2024 1:00 PM EST Encounter for dental examination CASE PRESENTATION SUBS DTL & EXTENSIVE TX PLN Routine 04/23/2024 1:00 PM EST Encounter for dental examination HGBA1C W/MPG Routine 03/07/2024 9:18 AM EST Routine general medical examination at a health care facility History of weight loss BMI 29.0-29.9,adult HIV 1/2 AG & AB W/RFLX (4TH GEN) Routine 04/13/2022 2:35 PM EST Routine general medical examination at a health care facility HEPATITIS C AB W/RFLX HCV RNA, QT, RT PCR Routine 04/13/2022 2:35 PM EST Routine general medical examination at a health care facility from Last 3 Months or Most Recently Relevant to Health Maintenance Results * (ABNORMAL) HGBA1C W/MPG (03/07/2024 9:18 AM EST) HEMOGLOBIN A1C 6.2(H) <5.7 % of total Hgb [facility] Comment: For someone without known diabetes, a hemoglobin A1c value between 5.7% and 6.4% is consistent with prediabetes and should be confirmed with a follow-up test. For someone with known diabetes, a value <7% indicates that their diabetes is well controlled. A1c targets should be individualized based on duration of diabetes, age, comorbid conditions, and other considerations. This assay result is consistent with an increased risk of diabetes. Currently, no consensus exists regarding use of hemoglobin A1c for diagnosis of diabetes for children. MEAN PLASMA GLUCOSE 143 mg/dL (calc) [facility] Blood Blood / Unknown 03/07/2024 9 :18 AM EST 03/07/2024 9:19 AM EST Bassem [facility] - BLOOD DRAW Final Result Performing Organization Address [facility] Co de Phone Number [employer] [address] [place] [address], [place] [address] [address] * HEPATITIS C AB W/RFLX HCV RNA, QT, RT PCR (04/13/2022 2:35 PM EST) Pathologist [facility] HEPATITIS C ANTIBODY NON-REACT KAIDEN NON-REACT KAIDEN [facility] SIGNAL TO CUT-OFF 0.13 <1.00 [employer] Comment: HCV antibody was non-reactive. There is no laboratory evidence of HCV infection. In most cases, no further action is required. However, if recent HCV exposure is suspected, a test for HCV RNA (test code 78039) is suggested. For additional information please refer to http://education.sharing.it/faq/STU37y1 (This link is being provided for informational/ educational purposes only.) Blood Blood / Unknown 04/13/2022 2 :35 PM EST 04/13/2022 2:36 PM EST Loree Shine MD LAB - BLOOD DRAW Final Result Performing Organization Address [facility] Co de Phone Number [employer] [address] [address], [place] [address] ([address]) [place] [address] * HIV 1/2 AG & AB W/RFLX (4TH GEN) (04/13/2022 2:35 PM EST) HIV AG/AB, 4TH GEN NON-REAC TIVE NON-REAC TIVE [place] [facility] Comment: HIV-1 antigen and HIV-1/HIV-2 antibodies were not detected. There is no laboratory evidence of HIV infection. PLEASE NOTE: This information has been disclosed to you from records whose confidentiality may be protected by state law. ??If your state requires such protection, then the state law prohibits you from making any further disclosure of the information without the specific written consent of the person to whom it pertains, or as otherwise permitted by law. A general authorization for the release of medical or other information is NOT sufficient for this purpose. ?? For additional information please refer to http://education.sharing.it/faq/RPC978 (This link is being provided for informational/ educational purposes only.) The performance of this assay has not been clinically validated in patients less than 2 years old. Blood Blood / Unknown 04/13/2022 2 :35 PM EST 04/13/2022 2:36 PM EST Loree Shine MD LAB - BLOOD DRAW Final Result [place] [address] [address], [place] [address] ([facility]) [place] [address] from Last 3 Months or Most Recently Relevant to Health Maintenance Insurance [employer] NET DENTAL ) Member Subscriber Plan / Payer (Ef fective 2023-Present) Name:Rupert Robledo Relation to Subscriber:Self Name:Rupert Robledo Payer ID:[id number] Group ID:Not on file Type:[employer] [place] Insurance Address: [address] [place] [id number] [facility] Care Teams Director Of Creative Services Relationship Specialty Start Date End Date Bassem Oneal PA [address] [place] [address] PCP - General Internal Medicine 05/28/16
--- OUTSIDE RECORDS SUMMARY | 2024-05-15 11:04 | XMS_ITS | Encounter Summary ---
Author Organization [facility] Address [address] [place] [address] Care Team Providers Care Internet Marketing Analyst Name Role Phone Bassem Oneal Primary Care Provider [phone] Reason for Visit * Reason Comments Dental Hygiene/ Preventive RECALL Encounter Details Date Type Department Care Team ([facility] st Contact Info) Description 04/23/2024 1:00 PM EST Office Visit [facility] [address] [place] [phone] Evita Bourgeois [address] [place] [address] Encounter for dental examination (Primary Dx); Caries of dentin; Caries of enamel (incipient) Social History Tobacco Use Types Packs/Day Years [...] PM EST documented as of this encounter Last Filed Vital Signs Vital Sign Reading Time Taken Comments Blood Pressure 120/75 04/23/2024 1:52 PM EST Pulse 66 04/23/2024 1:52 PM EST Temperature - - Respiratory Rate - - Oxygen Saturation - - Inhaled Oxygen Concentration - - Weight - - Height - - Body Mass Index - - documented in this encounter Progress Notes * Harshal Espino DDS - 04/23/2024 3:58 PM ESTAddended by: HARSHAL FERRERA on: 04/23/2024 03:58 PM Modules accepted: Orders * Evita Bourgeois - 04/23/2024 1:24 PM EST Prophy Subjective Rupert Robledo, 28 year old male, presents alone for [employer]. Professional Model: No No chief complaint on file. Objective RMHx: Yes Vitals: There were no vitals filed for this visit. Assessment EOE/IOE/Oral Cancer Screen: WNL Oral Hygiene: Excellent Home Care: Toothbrush 1 x per day, Floss 0 x per day Fluoride exposure: toothpaste Plaque: Generalized Slight Calculus: Generalized Slight Gingival Description: Firm Inflammation: Generalized Slight Recession: None Bone Loss: None Staining: None PSR: Yes Periodontal Screening Full Perio Charting completed: Yes Dx: Z01.20 Encounter for dental examination (primary encounter diagnosis) DH Dx Details: DR MADRIGAL EXAM Plan RECALL Informed Consent/PARQ (Procedure, Alternatives, Risks, Questions): Patient confirms informed consent using PARQ. Dental procedures in this visit D9450 - CASE PRESENTATION SUBS DTL & EXTENSIVE TX PLN (Completed) Service provider: Evita Bourgeois Billing provider: Harshal Espino DDS [id number] - ORAL CANCER SCREENING (Completed) Service provider: Evita Bourgeois Billing provider: Harshal Espino DDS D1330 - ORAL HYGIENE INSTRUCTIONS (Completed) Service provider: Evita Bourgeois Billing provider: Harshal Espino DDS D1310 - NUTRITIONAL COUNSELING CONTROL OF DENTAL DISEASE (Completed) Service provider: Evita Bourgeois Billing provider: Harshal Espino DDS D0603 - CARIES RISK ASSESSMENT & DOC FINDING HIGH RISK (Completed) Service provider: Evita Bourgeois Billing provider: Harshal Espino DDS D0274 - BITEWINGS - FOUR RADIOGRAPHIC IMAGES (Completed) Service provider: Evita Bourgeois Billing provider: Harshal Espino DDS D0180 - COMP PERIODONTAL EVALUATION - NEW/EST PATIENT (Completed) Service provider: Evita Bourgeois Billing provider: Harshal Espino DDS D1110 - PROPHYLAXIS - ADULT (Completed) Service provider: Evita Bourgeois Billing provider: Harshal Espino DDS D9993 - DENTAL CASE MANAGEMENT - MOTIVATIONAL INTV (Completed) Service provider: Evita Bourgeois Billing provider: Harshal Espino DDS D0120 - PERIODIC ORAL EVALUATION ESTABLISHED PATIENT (Completed) Service provider: Evita Bourgeois Billing provider: Harshal Espino DDS Prophy completed with ultrasonic manufacturing engineering manager [facility] & Nutrition counseling provided, discussed: Gingivitis Post-Op Information Given: verbal Referral: No orders of the following type(s) were placed in this encounter: Referral. Rx: No orders of the defined types were placed in this encounter. Behavior: Excellent NV: Recall documented in this encounter Plan of Treatment Upcoming Encounters Date Type Department Care Team ([facility] st Contact Info) Description 10/22/2024 11:00 AM EDT Office Visit [facility] [address] [place] [phone] Evita Bourgeois [address] [place] [phone] Scheduled Orders Name Type Priority Associated Diagnoses Order Schedule INTRAORAL - COMP SERIES OF RADIOGRAPHIC IMAGES Dental Procedures Routine 1 Occurren cj starting 04/23/2024 PANORAMIC RADIOGRAPHIC IMAGE Dental Procedures Routine 1 Occurrenc es starting 04/23/2024 documented as of this encounter Procedures Procedure Name Priority Date/Time Associated Diagnosis Comments ORAL CANCER SCREENING Routine 04/23/2024 1:00 PM EST Encounter for dental examination DENTAL CASE MANAGEMENT - MOTIVATIONAL INTV Routine 04/23/2024 1:00 PM EST Encounter for dental examination CARIES RISK ASSESSMENT & DOC FINDING HIGH RISK Routine 04/23/2024 1:00 PM EST Encounter for dental examination CASE PRESENTATION SUBS DTL & EXTENSIVE TX PLN Routine 04/23/2024 1:00 PM EST Encounter for dental examination COMP PERIODONTAL EVALUATION - NEW/EST PATIENT Routine 04/23/2024 1:00 PM EST Encounter for dental examination ORAL HYGIENE INSTRUCTIONS Routine 04/23/2024 1:00 PM EST Encounter for dental examination NUTRITIONAL COUNSELING CONTROL OF DENTAL DISEASE Routine 04/23/2024 1:00 PM EST Encounter for dental examination PROPHYLAXIS - ADULT Routine 04/23/2024 1 :00 PM EST Encounter for dental examination BITEWINGS - FOUR RADIOGRAPHIC IMAGES Routine 04/23/2024 1:00 PM EST Encounter for dental examination PERIODIC ORAL EVALUATION ESTABLISHED PATIENT Routine 04/23/2024 1:00 PM EST Encounter for dental examination documented in this encounter Visit Diagnoses Diagnosis Encounter for dental examination- Primary Dental examination Caries of dentin Dental caries extending into dentine Caries of enamel (incipient) Dental caries limited to enamel documented in this encounter Additional Health Concerns Assessment Noted Time PHQ-9 Depression Total Score: 0 03/07/20 24 8:44 AM PST documented as of this encounter Care Teams Internet Marketing Analyst Relationship Specialty Start Date End Date Bassem Oneal PA [address] [place] [address] PCP - General Internal Medicine 05/28/16 documented as of this encounter
--- NOTE | 2024-05-15 11:18 | AM.OFFWIN_ITS ---
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 Patient Tobacco Use Status: Never used Tobacco Allergies No Known Allergies [No Known Allergies*] Allergy (Unverified 05/15/24 11:19) Do you need a note to return to daycare/school/sports/work: No HPI HPI Comments History of Present Illness Details History of Present Illness - The patient is a 28-year-old male pres enting with a left ankle and foot injury following two falls occurring four days prior and three days prior, respectively. - Both incidents involved tripping near the bed while attempting to sit or rise, with the subsequent fall primarily impacting the left side. - The patient managed initial soreness w ith ice application and reports cleaning a cut sustained during one of the falls. - Swelling has been observed in the [facility] area. - Occupational duties currently necessit ate physical activities, making cautious ambulation paramount. - Prior management has been limited to r est, ice, compression considerations, and minimal weight-bearing activities to mitigate further complications. Physical Exam General: Cooperative, healthy appearing, comfortable, no acute distress and well developed Orientation: Patient oriented x3 Limitations: No limitations Head: Normal to inspection Ears: Hearing grossly normal bilaterally Nose: Normal external nose present Face and sinus: Normal facial exam Eyes: Appearance normal, both eyes and all related structures Neck: Scraped on the side Respiratory: Normal respiratory effort and able to speak in complete sentences. 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 Review of Systems Const All systems reviewed & are unremarkable except as noted in HPI and below Physical Exam Vital Signs: Last Vital Signs Pulse 60 05/15/24 11:20 BP 122/80 05/15/24 11:20 Pulse Ox 97 05/15/24 11:20 Oxygen Delivery Method Room Air 05/15/24 11:20 Extrem Right lower extremity: ankle Details: normal to inspection, tenderness Location: of the anterior talofibular ligament, no edema, normal ROM and abrasion (1cm skin tear/abrasion, no signs of infection noted) anterolateral ; no ecchymosis and foot Details: normal capillary refill, normal to inspection, tenderness Location: of the dorsal foot Location: medially and of the mid foot, toes with normal ROM, no edema, vascular exam Details: normal capillary refill and motor- sensory exam Details: light-touch normal; no unusual warmth, no abrasion, no laceration and no ecchymosis Assessment & Plan Assessment & Plan (1) Fall: Code(s): W19.XXXA - Unspecified fall, initial encounter Qualifiers: Encounter type: initial encounter Qualified Code(s): W19.XXXA - Unspecified fall, initial encounter Plan: An x-ray of the left ankle and foot will be conducted to rule out fractures. My interpretation of the XR's are no acute fracture or dislocation. The patient will avoid weight-bearing on the injured limb, with recommendations to utilize an JULITA bandage. Restriction of physical activities at work involving the use of the left foot and ankle is advised, limiting the text to tasks with minor physical demands. Pt should follow up with his PCP if his symptoms progression or get worse. Work adjustments include currently stated limitations, promoting recovery without additional strain on the affected area. Gave work note for one week with restrictions upon returning, as reviewed with pt. Patient was informed and verbally consented to the use of an ambient scribe for clinic note documentation during this visit. Orders: Orders XR foot LT min 3V Today M25.572 - Pain in left ankle and joints of left foot, M79.672 - Pain in left foot, W19.XXXA - Unspecified fall, initial encounter Coding Level of Care Code New Pt Level 4 (61145) Diagnoses Fall, initial encounter W19.XXXA Encounter type: initial encounter
[2024-05-15 11:20] VITALS: BP 122/80; PULSE 60; O2SAT 97
== END 2024-05-15 11:59 | disposition home or self-care (01) ==
PROVIDERS: PCP Physician Assistant; Visit Provider Physician Assistant
DX: M25.572 Pain in left ankle and joints of left foot (principal); M79.672 Pain in left foot; W19.XXXA Unspecified fall, initial encounter

== ENCOUNTER → 2024-05-15 11:35 | Outpatient (BNV) | payer OTHER, SELFPAY | PROVIDERS: PCP Physician Assistant; Visit Provider Radiology Diagnostic Radiology | DX: M79.672 Pain in left foot (principal) | CPT/HCPCS: 73600; 73630 ==